=== PATIENT | male | born 1950 | race Caucasian/White ===

== ENCOUNTER → 2017-01-18 | Outpatient (CLI) | payer MEDICARE, OTHER ==
[~2017-01-18] MED LIST: ADVAIR 250-501 EACH INH; COREG 12.5MG12.5 MG PO; ELAVIL 10 MG TA10 MG PO; ENSURE LIQUID237 ML PO; FLOVENT DISKUS50 MCG INH; HUMIBID LA TAB600 MG PO; HYDROCHLOROTHIA25 MG PO; MEGACE400 MG/10 PO; METFORMIN HCL500 MG PO; NEURONTIN 300300 MG PO; PHENERGAN 12.12.5 M1 PO; PROTONIX 40 MG40 M1 PO; SIMVASTATIN10 MG PO; VITAMIN B-122000 MC1 PO; VITAMIN D31000 UNIT PO; ZANTAC 150 MG150 MG PO
== END ==
LOC: KOH-I 14:11
DX: R63.4 Abnormal weight loss (principal); R05 Cough; R10.13 Epigastric pain; K21.0 Gastro-esophageal reflux disease with esophagitis; J18.9 Pneumonia, unspecified organism; N20.0 Calculus of kidney
CPT/HCPCS: 71250; 74150

== ENCOUNTER → 2017-01-25 | Day surgery (SDC) | payer MEDICARE, OTHER | END | disposition home or self-care (01) | LOC: OR 06:18 | PROVIDERS: Internal Medicine Pulmonary Disease | PROC: 0BB78ZX Excision of Left Main Bronchus, Via Natural or Artificial Opening Endoscopic, Diagnostic (ICD-10-PCS; 2017-01-25) | PROC: 0B978ZX Drainage of Left Main Bronchus, Via Natural or Artificial Opening Endoscopic, Diagnostic (ICD-10-PCS; principal; 2017-01-25 07:30) | DX: D49.1 Neoplasm of unspecified behavior of respiratory system (principal); J98.11 Atelectasis; J43.9 Emphysema, unspecified; I10 Essential (primary) hypertension; K21.9 Gastro-esophageal reflux disease without esophagitis; E11.9 Type 2 diabetes mellitus without complications; Z87.01 Personal history of pneumonia (recurrent); Z87.442 Personal history of urinary calculi; Z87.891 Personal history of nicotine dependence; Z79.84 Long term (current) use of oral hypoglycemic drugs; Z79.899 Other long term (current) drug therapy | CPT/HCPCS: 82962; J2250; J7120 ==

== ENCOUNTER → 2017-01-28 | Outpatient (CLI) | payer MEDICARE, OTHER | LOC: HEART 5 16:08 | DX: R91.8 Other nonspecific abnormal finding of lung field (principal); F17.210 Nicotine dependence, cigarettes, uncomplicated; R94.2 Abnormal results of pulmonary function studies | CPT/HCPCS: 94060; 94729 ==

== ENCOUNTER → 2017-02-21 | Outpatient (CLI) | payer MEDICARE, OTHER | LOC: OPSV 12:00 | DX: C34.32 Malignant neoplasm of lower lobe, left bronchus or lung (principal); R31.9 Hematuria, unspecified; J90 Pleural effusion, not elsewhere classified | CPT/HCPCS: 71010; 87086 ==

== ENCOUNTER 2017-02-25 12:37 | Inpatient (IN) | payer MEDICARE, OTHER ==
[~2017-02-25] VITALS: Ht 172.7 cm; Wt 88.5 kg
[~2017-02-25 12:37] MED LIST changes: -ADVAIR 250-501 EACH INH; -ELAVIL 10 MG TA10 MG PO; -ENSURE LIQUID237 ML PO; -FLOVENT DISKUS50 MCG INH; -HUMIBID LA TAB600 MG PO; -MEGACE400 MG/10 PO; -VITAMIN B-122000 MC1 PO; -VITAMIN D31000 UNIT PO; -ZANTAC 150 MG150 MG PO
[2017-02-25 13:20] LABS: HEMOGLOBIN 10.9 gm/dl (14.0-17.5); RED BLOOD COUNT 4.06 M/UL (4.20-5.50); WHITE BLOOD COUNT 13.7 K/UL (4.5-11.0)
[2017-02-25 13:36] LABS: BUN/CREATININE RATIO 60 (0-10)
[2017-02-25] MEDS ORDERED: ELAVIL 10 MG TA10 MG PO (20:36)
[2017-02-25] MEDS ORDERED: MEGACE400 MG/10 PO (20:37)
[2017-02-25] MEDS ORDERED: VITAMIN B-122000 MC1 PO (20:38)
[2017-02-25] MEDS ORDERED: VITAMIN D31000 UNIT PO (20:39)
[2017-02-25] MEDS ORDERED: ADVAIR 250-501 EACH INH (20:39)
[2017-02-25] MEDS ORDERED: FLOVENT DISKUS50 MCG INH (20:40)
[2017-02-25] MEDS ORDERED: ZANTAC 150 MG150 MG PO (20:40)
[2017-02-26 03:10] LABS: HEMOGLOBIN 10.1 gm/dl (14.0-17.5); RED BLOOD COUNT 3.77 M/UL (4.20-5.50); WHITE BLOOD COUNT 16.6 K/UL (4.5-11.0)
[2017-02-26 03:34] LABS: BUN/CREATININE RATIO 54 (0-10)
[2017-02-27 03:48] LABS: HEMOGLOBIN 9.9 gm/dl (14.0-17.5); RED BLOOD COUNT 3.74 M/UL (4.20-5.50); WHITE BLOOD COUNT 17.5 K/UL (4.5-11.0)
[2017-02-27 04:14] LABS: BUN/CREATININE RATIO 33 (0-10)
[2017-02-28 04:29] LABS: HEMOGLOBIN 9.8 gm/dl (14.0-17.5); RED BLOOD COUNT 3.74 M/UL (4.20-5.50); WHITE BLOOD COUNT 15.4 K/UL (4.5-11.0)
[2017-02-28 04:46] LABS: BUN/CREATININE RATIO 32 (0-10)
[2017-03-01 04:52] LABS: HEMOGLOBIN 9.7 gm/dl (14.0-17.5); RED BLOOD COUNT 3.57 M/UL (4.20-5.50); WHITE BLOOD COUNT 20.3 K/UL (4.5-11.0)
[2017-03-01 05:09] LABS: BUN/CREATININE RATIO 40 (0-10)
[2017-03-02 05:16] LABS: RED BLOOD COUNT 3.76 M/UL (4.20-5.50)
[2017-03-02 05:18] LABS: WHITE BLOOD COUNT 15.1 K/UL (4.5-11.0)
[2017-03-02 05:38] LABS: BUN/CREATININE RATIO 48 (0-10)
[2017-03-03 03:54] LABS: BUN/CREATININE RATIO 52 (0-10)
[2017-03-04 03:35] LABS: BUN/CREATININE RATIO 38 (0-10)
[2017-03-05 03:17] LABS: HEMOGLOBIN 11.4 gm/dl (14.0-17.5)
[2017-03-05 03:27] LABS: RED BLOOD COUNT 4.3 M/UL (4.20-5.50); WHITE BLOOD COUNT 20.4 K/UL (4.5-11.0)
[2017-03-05 03:47] LABS: BUN/CREATININE RATIO 43 (0-10)
[2017-03-06 03:52] LABS: BUN/CREATININE RATIO 49 (0-10)
[2017-03-06] MEDS ORDERED: HUMIBID LA TAB600 MG PO (17:12)
[2017-03-06] MEDS ORDERED: ENSURE LIQUID237 ML PO (17:15)
== END 2017-03-06 18:15 | disposition home health service (06) | DRG 871 ==
LOC: ER1 12:37 → PROG CARE 16:10 → ZEROF 16:10 → CCU 16:10 → PROG CARE 03-01 06:00
PROVIDERS: Family Medicine; Internal Medicine; ADMIT Internal Medicine Infectious Disease
DX: A41.9 Sepsis, unspecified organism (principal); J18.9 Pneumonia, unspecified organism; R65.21 Severe sepsis with septic shock; J96.21 Acute and chronic respiratory failure with hypoxia; C34.32 Malignant neoplasm of lower lobe, left bronchus or lung; E87.1 Hypo-osmolality and hyponatremia; I10 Essential (primary) hypertension; E78.5 Hyperlipidemia, unspecified; J44.9 Chronic obstructive pulmonary disease, unspecified; K21.9 Gastro-esophageal reflux disease without esophagitis; E11.9 Type 2 diabetes mellitus without complications; D64.9 Anemia, unspecified; R42 Dizziness and giddiness; I48.91 Unspecified atrial fibrillation; Z87.442 Personal history of urinary calculi; E88.09 Other disorders of plasma-protein metabolism, not elsewhere classified; E83.42 Hypomagnesemia; Z87.891 Personal history of nicotine dependence; Z80.9 Family history of malignant neoplasm, unspecified
CPT/HCPCS: ECHO; 36415; 36600; 70450; 71010; 80048; 80053; 80202; 81001; 82150; 82272; 82607; 82728; 82746; 82803; 82962; 83036; 83605; 83690; 83735; 84100; 84439; 84443; 84484; 85025; 85027; 85610; 86140; 87040; 87070; 87077; 87086; 87186; 87205; 93005; 93306; 94640; 94664; 96361; 96374; 96375; 97110; 97116; 99285; J1650; J2270; J2405; J2543; J2920; J3370; J7030; J7040; J7050; J7070

== ENCOUNTER 2017-03-11 13:49 | Emergency (ER) | payer MEDICARE, OTHER ==
[~2017-03-11 13:49] MED LIST changes: +ADVAIR 250-501 EACH INH; +ELAVIL 10 MG TA10 MG PO; +ENSURE LIQUID237 ML PO; +FLOVENT DISKUS50 MCG INH; +HUMIBID LA TAB600 MG PO; +MEGACE400 MG/10 PO; +VITAMIN B-122000 MC1 PO; +VITAMIN D31000 UNIT PO; +ZANTAC 150 MG150 MG PO
[2017-03-11 14:36] LABS: RED BLOOD COUNT 4.1 M/UL (4.20-5.50); WHITE BLOOD COUNT 17.2 K/UL (4.5-11.0)
[2017-03-11 14:58] LABS: BUN/CREATININE RATIO 40 (0-10)
== END 2017-03-11 20:00 | disposition home or self-care (01) ==
LOC: ER1 13:49
PROVIDERS: Emergency Medicine
DX: R42 Dizziness and giddiness (principal); I10 Essential (primary) hypertension; E87.1 Hypo-osmolality and hyponatremia; E78.5 Hyperlipidemia, unspecified; J44.9 Chronic obstructive pulmonary disease, unspecified; E11.9 Type 2 diabetes mellitus without complications; I48.91 Unspecified atrial fibrillation; D72.829 Elevated white blood cell count, unspecified; D64.9 Anemia, unspecified; R91.8 Other nonspecific abnormal finding of lung field; Z85.118 Personal history of other malignant neoplasm of bronchus and lung; Z87.891 Personal history of nicotine dependence
CPT/HCPCS: 36415; 36600; 70450; 71010; 80053; 81001; 82550; 82553; 82803; 83874; 84484; 85025; 93005; 94664; 99285

== ENCOUNTER 2017-03-12 14:25 | Emergency (ER) | payer MEDICARE, OTHER ==
[2017-03-12 15:20] LABS: HEMOGLOBIN 11.3 gm/dl (14.0-17.5); RED BLOOD COUNT 4.19 M/UL (4.20-5.50); WHITE BLOOD COUNT 15.8 K/UL (4.5-11.0)
[2017-03-12 15:35] LABS: BUN/CREATININE RATIO 31 (0-10)
== END 2017-03-12 17:13 | disposition home or self-care (01) ==
LOC: ER1 14:25
PROVIDERS: Family Medicine
DX: R53.1 Weakness (principal); R53.83 Other fatigue; R06.02 Shortness of breath; R03.1 Nonspecific low blood-pressure reading; J18.9 Pneumonia, unspecified organism; I48.91 Unspecified atrial fibrillation; E11.9 Type 2 diabetes mellitus without complications; C34.90 Malignant neoplasm of unspecified part of unspecified bronchus or lung
CPT/HCPCS: 36415; 80053; 85025; 85610; 85730; 87040; 99285

== ENCOUNTER 2017-03-14 09:36 | Emergency (ER) | payer MEDICARE, OTHER ==
[2017-03-14 10:25] LABS: HEMOGLOBIN 10.3 gm/dl (14.0-17.5); RED BLOOD COUNT 3.93 M/UL (4.20-5.50); WHITE BLOOD COUNT 16.4 K/UL (4.5-11.0)
[2017-03-14 10:48] LABS: BUN/CREATININE RATIO 32 (0-10)
== END 2017-03-14 11:16 ==
LOC: ER1 09:36
PROVIDERS: Family Medicine
DX: I63.9 Cerebral infarction, unspecified (principal); G81.94 Hemiplegia, unspecified affecting left nondominant side; C34.90 Malignant neoplasm of unspecified part of unspecified bronchus or lung; I48.91 Unspecified atrial fibrillation
CPT/HCPCS: 36415; 36600; 51702; 70450; 71010; 80053; 81001; 82140; 82550; 82553; 82803; 82962; 83874; 84484; 85025; 85610; 93005; 96374; 99285; J2405